=== PATIENT | male | born 1965 | race Caucasian/White ===

== ENCOUNTER 2022-01-11 14:03 | Outpatient (CLI) | payer OTHER, SELFPAY ==
--- NOTE | ~2022-01-11 | US_ITS ---
US abdomen limited INDICATION: Unspecified jaundice PROCEDURE: Realtime right upper abdominal ultrasound. COMPARISON: No prior studies for comparison. FINDINGS: The pancreas is normal without focal mass or pancreatic ductal dilation. Liver echotexture is normal without focal mass or intrahepatic biliary dilatation. There is normal directional flow i n the portal vein. The gallbladder is normal without stones, gallbladder wall thickening or pericholecystic fluid. Comm on bile duct measures 5.9 mm. No sonographic Best's sign. IMPRESSION: 1: Normal limited abdominal ultrasound. Reviewed, dictated and finalized at location A.
== END 2022-01-11 14:04 | disposition home or self-care (01) ==
LOC: ANHIMG 14:05
PROVIDERS: PCP Family Medicine; Visit Provider Physician Assistant
DX: R17 Unspecified jaundice (principal)
CPT/HCPCS: 76705

== ENCOUNTER 2022-03-03 01:13 | Day surgery (SDC) | payer OTHER, SELFPAY ==
[2022-02-13 13:53] VITALS: BMI 26.2
[2022-03-03 08:00] VITALS: BP 142/72; PULSE 62; RESP 20; TEMP 35.9; O2SAT 100; BMI 25.2
--- NOTE | 2022-03-03 08:11 | P.PNAN_ITS ---
Anes - Initial Pre Proc Eval Procedure: Operation Date: 03/03/22 09:00 Proposed Procedures p Screening Colonoscopy - Terry Mejia MD Date/Time: 03/03/22 08:11 Surgeon: Terry Mejia MD Pre Op Diagnosis: family hx of colon ca, neoplasm screening Patient Data Age: 57 Gender: M Height: 1.73 m Weight: 75.3 kg Last Vital Signs Temp 35.9 C L 03/03/22 08:00 Pulse 62 03/03/22 08:00 Resp 20 03/03/22 08:00 BP 142/72 H 03/03/22 08:00 Pulse Ox 100 03/03/22 08:00 Allergies Allergy/AdvReac Type Severity Reaction Status Date / Time bee venom protein (honey bee) Allergy Mild Unknown Verified 03/03/22 07:59 Home Medications Medication Instructions Recorded Confirmed Type tamsulosin 0.4 mg capsule 0.4 mg PO DAILY #90 cap 12/23/21 02/13/22 Rx Patient hx anesthesia problems: none Family hx anesthesia problems: none Results Review: All pre-operative results and documents have been reviewed as pa rt of the pre-operative evaluation. [facility] Surgical History Surgical History (Updated 03/03/22 @ 08:13 by Wiley Guerin MD) H/O inguinal hernia repair History of shoulder surgery Family History Family History Father Carcinoma of colon Social History Social History Smoking status: Never smoker Alcohol intake: never Substance use: never Substance use type: does not use Living arrangements: with family Spiritual care concerns: No Anes - Eval Final PreProcedure Day of Procedure 03/03/22 08:11 Patient weight: normal Heart: regular rate and rhythm Lungs: clear to auscultation Airway: Mallampati scale class II Neurological: alert and oriented Last oral intake: >/= 8 hours ASA classification: I Emergent: no Anesthetic plan: proceed Anesthesia type and monitoring: general GIVS and standard monitoring Results Review: All pre-operative results and documents have been reviewed as part of the pre-operative evaluation. Informed Consent: The patient's anesthetic plan and its attendant risks and benefits were discussed with the patient/family/POA. Questions were solicited and answers provided to the satisfaction of the patient/family/POA.
[2022-03-03] MEDS: LACTATED RINGERS 1,000 ML 150 ML IV CONT (08:12)
--- NOTE | 2022-03-03 08:42 | PM.HPGS ---
History of Present Illness History of Present Illness Consent: Risks, benefits, and alternatives have been discussed and questions answered. Patient agrees to proceed with procedure. Chief complaint: family hx of colon ca, neoplasm screening Narrative: Mario Cooper is a 57 year old male with last colonoscopy 12 years ago, father had colon cancer Review of Systems Constitutional: Constitutional: Denies headache(s) and Denies weakness Eyes: Eyes: Denies blurry vision ENT: Reports Normal hearing present, Denies headache(s) and Denies neck pain Cardiovascular: Cardiovascular: Denies chest pain and Denies dyspnea Respiratory: Respiratory: Denies dyspnea Gastrointestinal: Gastrointestinal: Reports no additional gastrointestinal complaints Genitourinary: Genitourinary: Denies dysuria Musculoskeletal: Musculoskeletal: Denies neck pain Integumentary/Breasts: Skin/Breast: Denies dry skin Neurologic: Reports Normal hearing present, Denies headache(s) and Denies weakness Psychiatric: Psychiatric: Denies anxiety Endocrine: Endocrine: Denies change in body appearance Hematologic/Lymphatic: Hematologic/Lymphatic: Denies easy bleeding Allergic/Immunologic: Allergic/Immunologic: Denies urticaria PMF Surgical History Surgical History (Updated 03/03/22 @ 08:13 by Wiley Guerin MD) H/O inguinal hernia repair History of shoulder surgery Family History Family History Father Carcinoma of colon Social History Social History Smoking status: Never smoker Alcohol intake: never Substance use: never Substance use type: does not use Living arrangements: with family Spiritual care concerns: No Meds Home Medications and Allergies Home Medications Medication Instructions Recorded Confirmed Type tamsulosin 0.4 mg capsule 0.4 mg PO DAILY #90 cap 12/23/21 02/13/22 Rx Allergies Allergy/AdvReac Type Severity Reaction Status Date / Time bee venom protein (honey bee) Allergy Mild Unknown Verified 03/03/22 07:59 Vital Signs Vital Signs - 24 hr 03/03/22 08:00 Temperature 96.7 F L Pulse Rate 62 Respiratory Rate 20 Blood Pressure 142/72 H Pulse Oximetry 100 Exam Const: General: comfortable and no acute distress HENMT: General nose exam: Normal nares present Eyes: General: appearance normal, both eyes and all related structures Neck: Neck: no JVD Resp: Auscultation: clear to auscultation bilaterally Cardio: Rate: regular rate Rhythm: regular rhythm GI: Inspection: non-distended GI Palp: Yes Soft to palpation Skin: General skin exam: normal color Neuro: General: gait normal Speech: normal speech Extrem: General: normal to inspection Psych: Mental Status: mental status grossly normal Assessment and Plan Assessment and plan (1) Family history of colon cancer: Code(s): Z80.0 - Family history of malignant neoplasm of digestive organs Status: Acute Assessment and Plan: colonoscopy
[2022-03-03 09:07] VITALS: BP 98/54; PULSE 55; RESP 12; O2SAT 98
[2022-03-03 09:17] VITALS: BP 105/69; PULSE 53; RESP 17; O2SAT 100
[2022-03-03 09:27] VITALS: BP 121/65; PULSE 52; RESP 13; O2SAT 100
== END 2022-03-03 09:37 | disposition home or self-care (01) ==
PROVIDERS: PCP Family Medicine; Visit Provider Internal Medicine Gastroenterology
PROC: 0DJD8ZZ Inspection of Lower Intestinal Tract, Via Natural or Artificial Opening Endoscopic (ICD-10-PCS; CPT 45378; principal; 2022-03-03 09:00)
DX: Z12.11 Encounter for screening for malignant neoplasm of colon (principal); D12.0 Benign neoplasm of cecum; K64.8 Other hemorrhoids; Z80.0 Family history of malignant neoplasm of digestive organs
CPT/HCPCS: 45385; 88305; J2704; J7120

== ENCOUNTER 2023-07-17 16:10 | Outpatient (CLI) | payer OTHER, SELFPAY ==
[2023-07-17 19:18] LABS: Kit Draw Collected
== END 2023-07-17 16:11 | disposition home or self-care (01) ==
LOC: ANHGOSHLAB 16:11
PROVIDERS: PCP Family Medicine; Visit Provider Family Medicine
DX: E03.9 Hypothyroidism, unspecified (principal)
CPT/HCPCS: 36415

== ENCOUNTER 2024-06-14 10:33 | Emergency (ER) | payer OTHER, SELFPAY ==
[2024-06-14 11:25] VITALS: BP 120/67; PULSE 59; RESP 14; TEMP 36.4; O2SAT 99
--- NOTE | 2024-06-14 11:29 | PC.NURSE ---
patient states they feel back to normal and just thinks they didn't drink enough water this morning and exerted themselves. educated patient to come back to nearest ER for any concerning symptoms. patient leaves with steady gait.
== END 2024-06-14 11:44 | disposition left against medical advice (07) ==
PROVIDERS: PCP Family Medicine
DX: R55 Syncope and collapse (principal)
CPT/HCPCS: 99199